=== PATIENT | female | born 1950 | race Caucasian/White ===

== ENCOUNTER 2018-06-27 13:17 | Observation (INO) | payer MEDICARE ==
[~2018-06-27] VITALS: Ht 162.6 cm; Wt 86.0 kg
[2018-06-27 14:19] LABS: HEMATOCRIT 43.2 % (37.0-47.0); HEMOGLOBIN 15.2 g/dl (12.0-16.0); IMMATURE GRANULOCYTES 1.1 % (0.0-5.0); MEAN CELL VOLUME 100.2 fL CALC (80.0-100.0); MEAN CORPUSCULAR HGB 35.3 pG CALC (26.0-32.0); MEAN CORPUSCULAR HGB CONC 35.2 g/L CALC (32.0-36.0); NEUT# 9.79 thou/uL (2.00-7.15); RED BLOOD COUNT 4.31 mill/uL (4.20-5.60); RED CELL DISTRI WIDTH 13.2 % (11.5-15.5)
[2018-06-27 14:23] LABS: ALBUMIN 4.2 g/dL (3.2-5.0); ALKALINE PHOSPHATASE 81 u/l (38-126); ANION GAP 20 (6-22 (CALC)); BUN 14 mg/dL (8-23); BUN/CREATININE RATIO 18 (12-20 (CALC)); CARBON DIOXIDE 21 mmol/l (22-30); CHLORIDE 92 mmol/l (95-108); CREATININE 0.8 mg/dL (0.5-1.0); GFR > 60 ML/MIN (>=60 (CALC)); GFR FOR AFR.AMER. > 60 ML/MIN (>=60 (CALC)); POTASSIUM 4.3 mmol/l (3.5-5.1); SGOT/AST 88 u/l (9-36); SODIUM 129 mmol/l (137-146); TOTAL PROTEIN 7.8 g/dL (6.3-8.2)
[2018-06-27 14:43] LABS: URINE BILIRUBIN - DIPSTICK NEGATIVE (NEGATIVE); URINE BLOOD DIPSTICK TRACE-INTACT (NEGATIVE); URINE COLOR YELLOW; URINE GLUCOSE - DIPSTICK 500 mg/dL (NEGATIVE); URINE KETONE TRACE mg/dL (NEGATIVE); URINE LEUK ESTERASE NEGATIVE (NEGATIVE); URINE NITRITE - DIPSTICK NEGATIVE (Negative); URINE PROTEIN - DIPSTICK TRACE mg/dL (NEG-TRACE); URINE SPECIFIC GRAVITY >=1.030; URINE UROBILINOGEN - DIPSTICK 0.2 E.U./dL (0.2)
[2018-06-27] MEDS ORDERED: METFORMIN500 MG PO (17:30)
[2018-06-27] MEDS ORDERED: SULFASALAZIN500 M1 PO (17:30)
[2018-06-27] MEDS ORDERED: ZANTAC150 M1 PO (17:31)
[2018-06-27] MEDS ORDERED: CYMBALTA60 MG PO (17:31)
[2018-06-27] MEDS ORDERED: VOLTAREN1%GEL TOP (17:33)
[2018-06-27] MEDS ORDERED: FOSAMAX PLUS PO (17:33)
[2018-06-27] MEDS ORDERED: ZETIA10 MG PO (17:34)
[2018-06-27] MEDS ORDERED: CELEBREX100 M1 PO (17:35)
[2018-06-27] MEDS ORDERED: BYSTOLIC5 MG PO (17:36)
[2018-06-27 18:00] VITALS: BP 121/62
[2018-06-28 01:05] VITALS: BP 132/84
[2018-06-28 04:20] VITALS: BP 113/68
[2018-06-28 05:38] LABS: HEMOGLOBIN 13.6 g/dl (12.0-16.0); MEAN CELL VOLUME 101.5 fL CALC (80.0-100.0); MEAN CORPUSCULAR HGB 34.5 pG CALC (26.0-32.0); RED BLOOD COUNT 3.94 mill/uL (4.20-5.60); RED CELL DISTRI WIDTH 13.5 % (11.5-15.5)
[2018-06-28 05:53] LABS: ANION GAP 13 (6-22 (CALC)); BUN 14 mg/dL (8-23); BUN/CREATININE RATIO 20 (12-20 (CALC)); CARBON DIOXIDE 20 mmol/l (22-30); CREATININE 0.7 mg/dL (0.5-1.0); GFR > 60 ML/MIN (>=60 (CALC)); GFR FOR AFR.AMER. > 60 ML/MIN (>=60 (CALC)); POTASSIUM 3.6 mmol/l (3.5-5.1); SODIUM 135 mmol/l (137-146)
[2018-06-28 05:54] LABS: CHLORIDE 106 mmol/l (95-108)
[2018-06-28 08:28] VITALS: BP 108/72
[2018-06-28 16:04] VITALS: BP 149/76
[2018-06-28 20:40] VITALS: BP 132/77
[2018-06-29 04:12] VITALS: BP 146/78
[2018-06-29 08:47] VITALS: BP 157/71
[2018-06-29] MEDS ORDERED: AMOXICILLIN500 MG PO (13:54)
== END 2018-06-29 14:50 | disposition home or self-care (01) ==
LOC: ED 13:17 → ED-I 16:13 → ED 16:28 → MS2 16:29
PROVIDERS: ADMIT Internal Medicine; ATTEND Internal Medicine
DX: J02.0 Streptococcal pharyngitis (principal); L03.114 Cellulitis of left upper limb; I10 Essential (primary) hypertension; E87.1 Hypo-osmolality and hyponatremia; E11.9 Type 2 diabetes mellitus without complications; M06.9 Rheumatoid arthritis, unspecified; L40.50 Arthropathic psoriasis, unspecified; R30.0 Dysuria; R50.9 Fever, unspecified; R53.1 Weakness
CPT/HCPCS: J1650; J3370

== ENCOUNTER 2018-07-15 13:55 | Emergency (ER) | payer MEDICARE ==
[~2018-07-15] VITALS: Ht 162.6 cm; Wt 86.0 kg
[~2018-07-15 13:55] MED LIST: AMOXICILLIN500 MG PO; BYSTOLIC5 MG PO; CELEBREX100 M1 PO; CYMBALTA60 MG PO; FOSAMAX PLUS PO; METFORMIN500 MG PO; SULFASALAZIN500 M1 PO; VOLTAREN1%GEL TOP; ZANTAC150 M1 PO; ZETIA10 MG PO
[2018-07-15 15:52] LABS: HEMOGLOBIN 12.7 g/dl (12.0-16.0); MEAN CELL VOLUME 102.4 fL CALC (80.0-100.0); MEAN CORPUSCULAR HGB 34.2 pG CALC (26.0-32.0); MEAN CORPUSCULAR HGB CONC 33.4 g/L CALC (32.0-36.0); NEUT# 0.63 thou/uL (2.00-7.15); RED BLOOD COUNT 3.71 mill/uL (4.20-5.60); RED CELL DISTRI WIDTH 13.2 % (11.5-15.5)
[2018-07-15 16:01] LABS: ALBUMIN 3.7 g/dL (3.2-5.0); ALKALINE PHOSPHATASE 112 u/l (38-126); ANION GAP 14 (6-22 (CALC)); BILIRUBIN, TOTAL 0.4 mg/dL (0.0-1.4); BUN 12 mg/dL (8-23); BUN/CREATININE RATIO 19 (12-20 (CALC)); CARBON DIOXIDE 26 mmol/l (22-30); CHLORIDE 101 mmol/l (95-108); CREATININE 0.6 mg/dL (0.5-1.0); GFR > 60 ML/MIN (>=60 (CALC)); GFR FOR AFR.AMER. > 60 ML/MIN (>=60 (CALC)); POTASSIUM 4.3 mmol/l (3.5-5.1); SGOT/AST 31 u/l (9-36); SODIUM 137 mmol/l (137-146); TOTAL PROTEIN 6.8 g/dL (6.3-8.2)
[2018-07-15 16:03] LABS: URINE BILIRUBIN - DIPSTICK NEGATIVE (NEGATIVE); URINE BLOOD DIPSTICK SMALL (NEGATIVE); URINE COLOR YELLOW; URINE GLUCOSE - DIPSTICK NEGATIVE (NEGATIVE); URINE KETONE NEGATIVE (NEGATIVE); URINE LEUK ESTERASE NEGATIVE (NEGATIVE); URINE NITRITE - DIPSTICK NEGATIVE (Negative); URINE PH 6.5 (4.5-8.0); URINE PROTEIN - DIPSTICK NEGATIVE (NEG-TRACE); URINE SPECIFIC GRAVITY 1.025; URINE UROBILINOGEN - DIPSTICK 0.2 E.U./dL (0.2)
[2018-07-15 16:05] LABS: INTERNATIONAL NORMALIZED RATIO 1.1 RATIO (0.7-1.3); PROTHROMBIN TIME 11.3 SECONDS (9.0-12.5)
[2018-07-15 16:28] LABS: URINE WBC 0-2 WBC/hpf (0-5)
[2018-07-16 00:23] VITALS: BP 122/72
== END 2018-07-16 00:22 | disposition short-term general hospital (02) ==
LOC: ED 13:55
PROVIDERS: Emergency Medicine
DX: N93.9 Abnormal uterine and vaginal bleeding, unspecified (principal); E11.9 Type 2 diabetes mellitus without complications; L40.50 Arthropathic psoriasis, unspecified; M06.9 Rheumatoid arthritis, unspecified; Z90.710 Acquired absence of both cervix and uterus
CPT/HCPCS: Q9967